=== PATIENT | male | born 1965 | race Caucasian/White ===

== ENCOUNTER 2016-05-08 17:53 | Inpatient (IN) ==
[2016-05-08] MEDS ORDERED: ONDANSETRON 4 MG/2 ML VIAL IV STA (18:40)
[2016-05-08] MEDS ORDERED: SODIUM CHLORIDE 0.9% 500 ML IV STA (18:40)
[2016-05-08] MEDS ORDERED: ONDANSETRON 4 MG/2 ML VIAL ONE ×2 (18:44→22:09)
--- NOTE | 2016-05-08 18:44 | Emergency Department Note ---
Arrival - Arrival Chief Complaint: Abdominal / Flank Pain Stated Complaint: stomach is aching in the lower region ED Nursing Triage Note: c/o having right lower abd.pain since thrusday., + temp with the highest being 102.0 apx. 1 hour ago,last tylenol apx. 1 hour ago., + diarrhea, + nausea Mode of Arrival: Ambulatory Limitations: No Limitations Source: Patient Time Seen by Provider: 05/08/16 18:30 - History of Present Illness HPI Narrative: This is a 50-year-old male patient presents the ED complaining of abdominal pain that began on . Patient also reports some fever that began today. Patient was initially generalized in the lower abdomen but has since localized in the right lower quadrant. He has had loss of appetite also. Patient's last bowel movement was yesterday. He also reports some dysuria today. Patient's pain is worse when he moves and walks. Past medical history is unremarkable. Allergies/Adverse Reactions: Allergies Allergy/AdvReac Type Severity Reaction Status Date / Time No Known Allergies Allergy Unverified 05/08/16 17:57 Review of System - Review of System 12 point system: reviewed and no additional remarkable complaints except as stated - Review of System Constitutional: Present: chills, fever Gastrointestinal: Present: abdominal pain, nausea Medical,Surgical,& Family Hx - Medical History Medical History: noncontributory - Social History Smoking Status: Never smoker Frequency of Alcohol Use: None Type of Drug Use: Unknown Exam Vital Signs: Vital Signs Temperature 99.5 F 05/08/16 17:55 Pulse Rate 109 H 05/08/16 17:55 Respiratory Rate 20 05/08/16 17:55 Blood Pressure 149/90 05/08/16 17:55 O2 Sat by Pulse Oximetry 96 05/08/16 17:55 - General General appearance: alert, in distress - Head Head exam: Present: atraumatic (secondary to abdominal pain) - Eye Eye exam: Present: normal appearance, PERRL, EOMI - Neck Neck exam: Present: normal inspection - Chest Chest inspection: Present: normal inspection - Respiratory Respiratory exam: Present: normal lung sounds bilaterally. Absent: respiratory distress, wheezes - Cardiovascular Cardiovascular exam: Present: normal rhythm, tachycardia. Absent: murmur, rubs , gallop - Abdominal Exam Abdominal exam: Present: soft, tenderness (right lower quadrant and lower epigastric area), guarding, rebound, diminished bowel sounds - Rectal Exam Rectal exam: Present: deferred - Extremities Exam Extremities exam: Present: normal inspection - Back Exam Back exam: Present: normal inspection - Neurological Exam Neurological exam: Present: alert, oriented X3 - Psychiatric Psychiatric exam: Present: normal affect, normal mood - Skin Skin exam: Present: warm, dry Course Course Narrative: Patient discussed with Dr. Barone who will take patient to surgery for an appendectomy. Results - Labs CBC & BMP: 05/08/16 18:48 Lab Results: I have reviewed the patients labs - Diagnostic Findings Procedure: CT: report reviewed by me (CT abdomen shows an acute appendicitis.) Disposition Clinical Impression: Acute appendicitis Case discussed with: patient Disposition: Still a Patient Condition: Guarded Additional Instructions: Admit to Dr. Barone for surgery
[2016-05-08 19:02] LABS: Basophils % 0.1 % (0.0-0.8); Hematocrit 41.7 VOL% (42.0-52.0); Hemoglobin 14.8 GM/DL (14.0-18.0); Immature Granulocytes % 0.6 %; Lymphocytes # 0.6 10*3/uL (1.4-4.0); Lymphocytes % 3.9 % (21.2-54.2); Mean Corpuscular HGB Conc 35.5 GM/DL (32-36); Mean Corpuscular Hemoglobin 31 PG (27-34); Mean Corpuscular Volume 86.2 FL (87-102); Mean Platelet Volume 9.3 FL (9.6-12.0); Monocytes # 1.4 10*3/uL (0.11-0.8); Monocytes % 8.6 % (1.7-12.7); Neutrophils # 13.9 10*3/uL (1.4-7.4); Neutrophils % 86.8 % (38.7-73.9); Platelet Count 209 10*3/uL (130-400); Red Blood Count 4.84 10*6/uL (3.8-5.5); Red Cell Distribution Width 12.1 % (9.3-17.3)
[2016-05-08 19:10] LABS: Apearance,Urine CLEAR (Clear); Bilirubin,Urine Negative (Negative); Blood, Urine Negative (Negative); Glucose,Urine (UA) >=500 mg/dL (Negative); Ketones,Urine Negative (Negative); Nitrite,Urine Negative (Negative); Protein,Urine Negative; Urine Color Yellow (Yellow); Urine Specific Gravity 1.005 (1.001-1.035); Urine Urobilinogen < 2.0 EU/DL (0.2-1.0); WBC,Urine 1 /HPF (0-6)
--- NOTE | 2016-05-08 19:17 | CT Report ---
CT abdomen pelvis w con Indication: Right lower quadrant abdominal pain. Fever. Comparison: None. Technique: CT of the abdomen and pelvis was performed following administration of intravenous contrast. Findings: Pulmonary nodule subpleural right lower lobe image #9 measures 4.5 mm. No definite calcification is identified within this nodule. Lower chest otherwise is unremarkable. The liver demonstrates no significant abnormality. A calcified gallstone is noted dependently within the gallbladder. The gallbladder wall appears normal. No inflammatory changes are present. Spleen is normal in size and appearance. The pancreas demonstrates no significant abnormality. The adrenal glands and kidneys demonstrate no significant abnormalities. The aorta and inferior vena cava demonstrate no significant abnormalities. The appendix is diffusely enlarged and demonstrates a moderate degree of periappendiceal fat stranding and inflammation. Transverse dimension the appendix is 16 mm. There is no distinct evidence of perforation. Inflammatory changes surrounding the appendix but the terminal ileum and may result in minimal thickening of the distal ileal wall. The large bowel demonstrates no acute findings. The intrapelvic contents demonstrate no acute findings. Bony structures of the lumbar spine, pelvis, proximal femurs demonstrate no significant abnormalities. Impression: 1. Findings compatible with acute appendicitis. 2. Cholelithiasis. Findings were communicated to Dr. Bell in fast track at 1913 hrs., date of exam. 05/08/2016 7:06 PM PROCEDURE INTERPRETED AT [facility] DEPARTMENT OF RADIOLOGY Final Report Signed by: Dr. Tacho Maldonado
[2016-05-08 19:21] LABS: Albumin 3.9 G/DL (3.4-5.0); Bilirubin,Total 1.8 MG/DL (0.2-1.0); Calcium 8.7 MG/DL (8.5-10.1); Total Protein 7.5 G/DL (6.4-8.3)
[2016-05-08] MEDS ORDERED: ceFAZolin 1,000 MG VIAL ONE (19:21)
[2016-05-08 19:54] LABS: Lymphocytes 3 % (20-55); Segmented Neutrophils 88 % (50-85); Total Cells Counted 100
[2016-05-08] MEDS ORDERED: ACETAMINOPHEN 500 MG TABLET ONE (19:54)
[2016-05-08] MEDS ORDERED: GABAPENTIN 400 MG CAPSULE ONE (19:55)
[2016-05-08] MEDS ORDERED: ACETAMINOPHEN 500 MG TABLET PO ONE (20:05)
--- NOTE | 2016-05-08 20:31 | General Surg History&Physical ---
Assessment and Plan (1) Acute appendicitis Status: Acute Assessment and plan: This patient has acute appendicitis. I have discussed the treatment for appendicitis with the patient. I have discussed both medical and surgical management. I discussed the success rate of antibiotics for the treatment of appendicitis. I discussed the benefits and drawbacks of both options and my recommendation has been for operative intervention. I recommended a laparoscopic appendectomy to the patient. I discussed the risks, benefits, and alternatives of the operation, and the expected outcomes have been reviewed. The patient would like to proceed with laparoscopic cholecystectomy. Current Visit: Yes History of Present Illness Chief complaint: abdominal pain History of present illness: Mr. Alfred is a 50 year old male with no significant past medical or surgical history who presents to the hospital with a 2 day history of worsening abdominal pain. He has never had pain like this before. He has some nausea but no vomiting. No changes in his bowel movements. He had a recent colonoscopy last year that had some polyps that were benign. He has had some low-grade fevers. The pain started in his midabdomen and moved to the right lower quadrant today. Workup in the ER included white blood cell count of 16,000 and normal urinalysis. The patient's bilirubin was elevated at 1.8. CT scan showed acute appendicitis. Allergies Allergy/AdvReac Type Severity Reaction Status Date / Time No Known Allergies Allergy Unverified 05/08/16 17:57 Medical,Surgical,& Family Hx - Social History Smoking Status: Never smoker Frequency of Alcohol Use: None Type of Drug Use: Unknown Exam - Constitutional Vitals: Period Temp Pulse Resp BP Sys/Weeks Pulse Ox Last 24 Hr 99.5 F 109 20 149/90 96 General appearance: no acute distress, over weight - Head Head exam: Present: normal inspection, normocephalic - Eye Eye exam: Present: EOMI Pupils: Present: DANIEL - ENT ENT exam: Present: normal exam Mouth exam: Present: normal external inspection, normal voice - Neck Neck exam: Present: normal inspection, trachea midline - Respiratory Respiratory exam: Present: clear to auscultation bilaterally. Absent: accessory muscle use, chest wall tenderness - Cardiovascular Cardiovascular exam: Present: RRR. Absent: systolic murmur, tachycardia - GI/Abdominal GI/Abdominal exam: Present: tenderness (right lower quadrant tenderness at McBurney's point. Positive Rovsing sign), soft - Extremities Exam Extremities exam: Present: normal inspection, normal capillary refill - Back Exam Back exam: Present: normal inspection - Neurological Exam Neurological exam: Present: alert, oriented X3 Speech: Present: normal - Skin Skin exam: Present: normal color, warm - Constitutional Constitutional: Present: as per HPI - EENT Nose, mouth and throat: Present: as per HPI - Cardiovascular Cardiovascular: Present: as per HPI - Respiratory Respiratory: Present: as per HPI - Gastrointestinal Gastrointestinal: Present: as per HPI - Genitourinary Genitourinary: Present: as per HPI - Musculoskeletal Musculoskeletal: Present: as per HPI - Neurological Neurological: Present: as per HPI - Endocrine Endocrine: Present: as per HPI Hematologic/Lymphatic: Present: as per HPI Results - Labs CBC & BMP: 05/08/16 18:48 05/08/16 18:48 - Diagnostic Findings Procedure: CT Abdomen and Pelvis: image reviewed by me, report reviewed by me
[2016-05-08] MEDS ORDERED: TISSUE ADHESIVE 1 EACH APPLICATOR TOP ONE (20:40)
[2016-05-08] MEDS ORDERED: LIDOCAINE 1%/EPI INJ 20 ML VIAL ONE (20:40)
[2016-05-08] MEDS ORDERED: BUPIVACAINE MPF 0.25% /EPI 30 ML VIAL ONE (20:40)
--- NOTE | 2016-05-08 22:02 | Operative Note ---
Date of procedure: 05/08/16 Pre-op diagnosis: acute appendicitis Post-op diagnosis: other (acute perforated appendicitis) Procedure: Preoperative diagnosis Acute appendicitis Postoperative diagnosis Acute perforated appendicitis Procedures performed Laparoscopic appendectomy 22 modifier Findings Acute appendicitis is present in the right lower quadrant and the appendix was very stuck and fibrotic to the retroperitoneum into the cecal wall as well as the terminal ileum. The fibrotic nature of some of inflammation made this surgery take more than twice the usual length of time. The appendix was perforated and there was a smaller purulent fluid in the right lower quadrant. Complications None apparent Specimen Appendix Blood loss 25 mL Anesthesia GETA Indications Acute appendicitis CT proven Description of procedure The patient was taken to the operating room and transferred to the operating table in the supine position. Pressure points were padded and SCDs were placed bilateral lower extremities. General endotracheal anesthesia was administered. The abdomen was prepped chlorhexidine and draped sterilely. Preoperative antibiotics were administered, and a timeout was performed. The abdomen was entered in a supraumbilical location in the right paramedian location with a Veress needle. Local anesthetic was administered and a 12 mm skin incision was made with an 11 blade scalpel. Penetrating towel clips were used to grasp the abdominal wall skin and a Veress needle was used to enter the peritoneal cavity. Double click technique was used to enter the peritoneal location. Aspiration was negative. Saline drop test confirmed intraperitoneal location. The abdomen was insufflated to 15 mmHg with initial insufflation pressure of 5 mmHg. The Veress needle was removed and a 12 mm trocar was placed blindly. Laparoscope was inserted and a diagnostic laparoscopy was performed. The gallbladder appeared normal. There were some adhesions between the ascending colon and the anterior abdominal wall but no complications from this. The appendix was inflamed in the right lower quadrant. There is a area of purulent fluid next to the appendix. The terminal ileum was stuck down to the appendix and there was a fibrotic nature to the reaction suggesting chronic inflammation. Under direct visualization, and after local anesthetics administered, a suprapubic 5 mm trocar and a left lower quadrant 5 mm trocar were placed. The patient was placed in Trendelenburg and left side rolled up position. It is very difficult to dissect the appendix away from the terminal ileum, the cecum, and the retroperitoneum because of some of the fibrotic nature of the reaction of inflammation. This made the case take more than twice the usual length of time. Eventually I was able to completely mobilize the appendix away from the structures and a window in the appendiceal mesentery was created with a [place] dissector. The base of the appendix was ligated using a ALEE stapler. The appendiceal mesentery was then divided with vascular staple loads with the ALEE stapler. There was some bleeding from the staple line controlled with direct pressure and Surgicel was applied to the raw surface for the appendix to been dissected away from the retroperitoneum. The CO2 level was decreased to 6 mmHg and there was no bleeding seen. Local suction irrigation was performed in the right lower quadrant. The CO2 was released from the abdomen after the appendix was placed in a retrieval bag and removed through the supraumbilical trocar. The trochars were removed once the CO2 was released and the skin incisions were closed with 4-0 Monocryl and sterile skin glue. The patient was awakened from anesthesia and transferred to recovery. Postoperative plan Continue antibiotics Diet as tolerated Discharge planning Implants: surgicel Anesthesia: MARIA LUISA local Surgeon / Physician: Ivan Barone Estimated blood loss: other (25 mL) Specimens: other (appendix) Condition: stable Disposition: PACU Results - Labs CBC & BMP: 05/08/16 18:48 05/08/16 18:48
[2016-05-08] MEDS ORDERED: PROPOFOL 200 MG/20 ML VIAL IV ONE (22:08)
[2016-05-08] MEDS ORDERED: NEOSTIGMINE 10 MG/10 ML VIAL ONE (22:09)
[2016-05-08] MEDS ORDERED: ROCURONIUM 100 MG/10 ML VIAL IV ONE (22:09)
[2016-05-08] MEDS ORDERED: KETOROLAC 30 MG/1 ML VIAL ONE (22:09)
[2016-05-08] MEDS ORDERED: GLYCOPYRROLATE 0.4 MG/2 ML VIAL ONE (22:09)
[2016-05-08] MEDS ORDERED: MIDAZOLAM 2 MG/2 ML VIAL ONE (22:09)
[2016-05-08] MEDS ORDERED: LACTATED RINGERS 1,000 ML IV ONE (22:10)
--- NOTE | 2016-05-08 22:26 | Anesthesia ---
Anesthesia Post OP - Post Ansesthetic Evaluation Patient seen in post op: Yes Resp: within normal limits CV: within normal limits Mental: within normal limits Temp: within normal limits [id number]-Dtopaumis: within normal limits Nausea and Vomiting: within normal limits Pain: within normal limits
[2016-05-08] MEDS ORDERED: HYDROmorphone 2 MG/1 ML VIAL IV PRN (22:58)
[2016-05-08] MEDS ORDERED: PROMETHAZINE 25 MG/1 ML VIAL IM PRN (22:58)
[2016-05-08] MEDS: KETOROLAC 15 MG/1 ML VIAL IV SCH (23:30)
[2016-05-08] MEDS: LACTATED RINGERS 1,000 ML IV SCH (23:30)
[2016-05-08] MEDS: PIPERACILLIN/TAZOBACTAM 3,375 MG in SODIUM CHLORIDE 0.9% 100 ML IV SCH (23:30)
[2016-05-09] MEDS: KETOROLAC 15 MG/1 ML VIAL IV SCH ×5 (00:10→22:26)
[2016-05-09] MEDS: PANTOPRAZOLE 40 MG TABLET PO SCH (08:03)
[2016-05-09] MEDS: PIPERACILLIN/TAZOBACTAM 3,375 MG in SODIUM CHLORIDE 0.9% 100 ML IV SCH ×3 (08:03→22:22)
--- NOTE | 2016-05-09 10:53 | EKG Report ---
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
[2016-05-09] MEDS: LACTATED RINGERS 1,000 ML IV SCH ×2 (10:55→22:22)
--- NOTE | 2016-05-09 13:30 | Event Note ---
General Surgery Progress Note Chief complaint This patient is a 50-year-old man admitted with acute appendicitis treated with laparoscopic appendectomy on 05/08/2016 and found to have a perforated appendicitis Interval history The patient was doing well he did spike a fever today. He's not having much abdominal pain at all. His urine is slightly concentrated. He is tolerating his diet and drinking plenty of liquids. He is passing gas but no bowel movements yet. Physical exam Febrile to 102.1 with little bit of tachycardia this morning but normal blood pressure Chest is clear Heart is regular no sign abdomen is soft and nondistended. It is appropriately tender. Good bowel sounds. Assessment and plan The fever is not unexpected given the fact that his appendix was perforated. We will continue to monitor his fever curve he otherwise appears to be doing well. Continue antibiotics and regular diet today.
[2016-05-09] MEDS ORDERED: ENOXAPARIN 40 MG/0.4 ML SYRINGE ONE (14:07)
[2016-05-09] MEDS: ENOXAPARIN 40 MG/0.4 ML SYRINGE SUBCUT SCH (16:02)
[2016-05-09] MEDS ORDERED: GABAPENTIN 400 MG CAPSULE PO ONE (20:05)
[2016-05-10 02:48] LABS: Basophils % 0.2 % (0.0-0.8); Eosinophils % 0.5 % (0.00-10.9); Hemoglobin 12.2 GM/DL (14.0-18.0); Immature Granulocytes % 0.7 %; Immature Granulocytes Absolute 0.06 #; Lymphocytes # 1.1 10*3/uL (1.4-4.0); Lymphocytes % 13.1 % (21.2-54.2); Mean Corpuscular HGB Conc 33.9 GM/DL (32-36); Mean Corpuscular Hemoglobin 30 PG (27-34); Mean Platelet Volume 9.3 FL (9.6-12.0); Monocytes # 0.9 10*3/uL (0.11-0.8); Monocytes % 10.3 % (1.7-12.7); Neutrophils # 6.5 10*3/uL (1.4-7.4); Neutrophils % 75.2 % (38.7-73.9); Platelet Count 158 10*3/uL (130-400); Red Blood Count 4.09 10*6/uL (3.8-5.5); Red Cell Distribution Width 12.5 % (9.3-17.3); White Blood Count 8.7 10*3/uL (4.5-13.71)
[2016-05-10 03:08] LABS: Albumin 3.1 G/DL (3.4-5.0); Bilirubin,Total 1.6 MG/DL (0.2-1.0); Calcium 7.8 MG/DL (8.5-10.1); Total Protein 5.8 G/DL (6.4-8.3)
[2016-05-10 03:09] LABS: Osmolality,Calculated 271.2 MOS/KG (273-304); Potassium 3.7 MMOL/L (3.5-5.1)
[2016-05-10] MEDS ORDERED: SODIUM CHLORIDE 0.9% 1,000 ML IV ONE (03:40)
[2016-05-10] MEDS: KETOROLAC 15 MG/1 ML VIAL IV SCH ×2 (05:08→10:12)
[2016-05-10] MEDS: LACTATED RINGERS 1,000 ML IV SCH (05:08)
[2016-05-10] MEDS: PANTOPRAZOLE 40 MG TABLET PO SCH ×2 (07:36→08:00)
[2016-05-10] MEDS: ONDANSETRON 4 MG/2 ML VIAL IV PRN ×2 (08:37→18:25)
--- NOTE | 2016-05-10 09:33 | XRay Report ---
XR KUB Indication: Abdominal distention Comparison: None. Technique: Supine AP image of the abdomen was obtained. Findings: Lung bases are clear. There is no evidence of organomegaly. Bowel gas pattern is unremarkable. Renal contours are bilaterally symmetric. Bones and soft tissues demonstrate no significant abnormalities. Impression: 1. No active process is demonstrated within the abdomen or pelvis. 05/10/2016 9:30 AM PROCEDURE INTERPRETED AT [facility] DEPARTMENT OF RADIOLOGY Final Report Signed by: Dr. Tacho Maldonado
--- NOTE | 2016-05-10 10:03 | EKG Report ---
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
--- NOTE | 2016-05-10 11:43 | Event Note ---
General Surgery Progress Note Chief complaint This patient is a 50-year-old man admitted with acute appendicitis treated with laparoscopic appendectomy on 05/08/2016 and found to have a perforated appendicitis Interval history The patient had an episode after Zosyn infusion morning developed tachycardia and the 200s. It was short-lived. He had some dyspnea on occurred. He is back to his baseline today but he is having some abdominal distention throughout after breakfast. He is passing gas but hasn't had a bowel movement yet. He had a fever again last night but he defervesced this morning. Physical exam Fever overnight but normal this morning Chest is clear Heart is regular no sign abdomen is soft. The abdomen is more distended than yesterday. It is appropriately tender. Decreased bowel sounds. Assessment and plan Nothing the episode the patient had last night is consistent with an antibiotic allergy. We will list Zosyn as an allergy and change him to ciprofloxacin and Flagyl IV. He also appears to have a slight ileus but he does not have a concerning abdominal exam. We will continue his antibiotics given his fevers and switch him from Zosyn to Cipro and Flagyl. Continue diet as tolerated but continue IV fluids for early ileus. encourage ambulation
[2016-05-10] MEDS: DEXT 5% NACL 0.45% KCL 20 MEQ 20 MEQ/1,000 ML BAG IV SCH ×2 (11:49→15:02)
[2016-05-10] MEDS ORDERED: CIPROFLOXACIN INJ 400 MG in PREMIX 1 EACH IV SCH (12:30)
[2016-05-10] MEDS ORDERED: metroNIDAZOLE INJ 500 MG in PREMIX 1 EACH IV SCH (12:30)
--- NOTE | 2016-05-10 12:31 | EKG Report ---
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
[2016-05-10] MEDS ORDERED: LACTATED RINGERS 1,000 ML IV ONE (13:15)
--- NOTE | 2016-05-10 13:38 | XRay Report ---
XR chest 1V portable Indication: Chest pain. Comparison: None. Technique: Portable AP chest was performed. Findings: Heart size, mediastinal contour, and hilar structures demonstrate no evidence of acute pathology. Minimal elevation right hemidiaphragm is present. Stranding opacities in the right infrahilar lung are nonspecific and likely influenced by the degree of inspiration. Infectious process is not excluded.. Bones and soft tissues demonstrate no evidence of acute pathology. Impression: 1. Infectious process right infrahilar lung is not excluded. 05/10/2016 1:35 PM PROCEDURE INTERPRETED AT [facility] DEPARTMENT OF RADIOLOGY Final Report Signed by: Dr. Tacho Maldonado
--- NOTE | 2016-05-10 14:21 | CT Report ---
CT abdomen pelvis w con, CT chest PE study Indication: Status post appendectomy. Episode of fever and desaturation. Comparison: None. Technique: CT of the chest, abdomen and pelvis was performed following administration of intravenous contrast. Findings: CHEST: Within the medial segment of the right middle lobe, there is airspace attenuation with surrounding groundglass attenuation as well as superimposed thickened intralobular septal lines. This focus of airspace attenuation suggests infectious process/pneumonia. Dependent atelectasis is noted bilaterally within the lower chest. Additionally present within the lower chest, smoothly thickened interlobular septal lines are present which are nonspecific and could reflect presence of interstitial edema or infection. Compressive atelectasis is minimal within the posterior right lower lobe. No pleural effusions are demonstrated. The pulmonary artery demonstrate suboptimal opacification, averaging 129 Hounsfield units. No central filling defects are present within the pulmonary artery. Lobar pulmonary arteries are grossly normal. Segmental and subsegmental pulmonary arteries cannot be visualized. Heart size is normal. A small to moderate amount fluid is present within the esophagus. Subcentimeter mediastinal and hilar lymph nodes are demonstrated. Soft tissues and musculature the chest wall, as well as bony structures of the chest demonstrate no acute findings. ABDOMEN/PELVIS: Appearance of the liver, gallbladder, spleen, pancreas, adrenal glands, and kidneys is stable compared to the previous study with exception of increased perinephric fat stranding surrounding the right kidney. Small gallstone dependently located within the gallbladder is stable. A moderate amount of fat stranding is now present within the right lower quadrant where previously the inflamed appendix was. There's been interval appendectomy. A small rounded focus of attenuation compatible with Surgicel is present. The fat stranding surrounds the right ureter. Small large bowel demonstrate no significant abnormalities otherwise are stable compared to previous study. Bony structures of the lower lumbar spine, pelvis, proximal femurs as well as intrapelvic contents demonstrate no significant interval change. Impression: 1. Pneumonia involving medial segment right middle lobe is suggested. 2. Thickened interstitial lines within the lower lobes are nonspecific and may reflect evidence of pulmonary edema or infection. 3. Interval appendectomy. Rounded focus of attenuation smooth margins may reflect Surgicel. Otherwise, there's been slight interval increase in mesenteric inflammatory stranding which is nonspecific given the recent stent surgery. 4. Minimal perinephric fat stranding increase has occurred surrounding the right kidney. Correlation with urinalysis and culture may be useful to exclude pyelonephritis. 5. No evidence of pulmonary artery embolus, note is made however that there is significant limitation in evaluating the segmental and subsegmental branches secondary to contrast timing. 6. Cholelithiasis. 7. Otherwise little change in the appearance of the chest, abdomen, or pelvis. 05/10/2016 2:01 PM PROCEDURE INTERPRETED AT [facility] DEPARTMENT OF RADIOLOGY Final Report Signed by: Dr. Tacho Maldonado
[2016-05-10] MEDS ORDERED: ACETAMINOPHEN 325 MG TABLET ONE (14:37)
[2016-05-10 15:23] LABS: Apearance,Urine CLEAR (Clear); Bilirubin,Urine Negative (Negative); Blood, Urine Negative (Negative); Glucose,Urine (UA) Negative (Negative); Ketones,Urine Negative (Negative); Nitrite,Urine Negative (Negative); Protein,Urine Negative; RBC,Urine <1 /HPF (0-4); Urine Color Yellow (Yellow); Urine Specific Gravity 1.009 (1.001-1.035); WBC,Urine 1 /HPF (0-6)
[2016-05-10] MEDS ORDERED: KETOROLAC 30 MG/1 ML VIAL IV PRN (15:36)
[2016-05-10] MEDS: ENOXAPARIN 40 MG/0.4 ML SYRINGE SUBCUT SCH (15:47)
--- NOTE | 2016-05-10 16:13 | Ultrasound Report ---
US venous doppler LE BI Indication: Shortness of breath Comparison: None. Technique: Using a transcutaneous probe, grayscale, spectral Doppler, and color Doppler images of the bilateral lower extremity venous structures were captured and stored. Grayscale images prior to and following compression were obtained. Interrogated venous structures include the bilateral common femoral vein, superficial femoral vein (proximal, mid, and distal), and popliteal vein. Findings: There is no evidence of thrombus within the interrogated venous structures. the interrogated venous segments demonstrate presence of both color flow and spectral flow. Impression: 1. No evidence of venous thrombosis. 05/10/2016 4:10 PM PROCEDURE INTERPRETED AT [facility] DEPARTMENT OF RADIOLOGY Final Report Signed by: Dr. Tacho Maldonado
--- NOTE | 2016-05-10 18:26 | Nuclear Medicine Report ---
NM lung scan vent and per Indication: Incomplete exclusion of pulmonary embolus on recent CT angiography of the pulmonary artery. Shortness of breath and fever. Comparison: None. Technique: Ventilation scan of the lungs was performed. 30 mCi of technetium 99m labeled DTPA was administered in aerosolized form, following which planar imaging in the anterior, [place], and COLIN projections was accomplished. Following this, 5 mCi technetium 99m labeled MAA was injected intravenously and perfusion scanning of the chest was performed in the anterior, [place], and COLIN projections. Findings: Perfusion imaging demonstrates no defects, essentially excluding pulmonary artery emboli. The ventilation component of the study suggests some evidence of clumping of DTPA within the central airways. Impression: 1. Normal study. No perfusion defect. 05/10/2016 6:22 PM PROCEDURE INTERPRETED AT [facility] DEPARTMENT OF RADIOLOGY Final Report Signed by: Dr. Tacho Maldonado
[2016-05-10] MEDS: ACETAMINOPHEN 325 MG TABLET PO PRN (18:43)
[2016-05-11] MEDS: DEXT 5% NACL 0.45% KCL 20 MEQ 20 MEQ/1,000 ML BAG IV SCH ×3 (00:50→21:04)
[2016-05-11] MEDS: ACETAMINOPHEN 325 MG TABLET PO PRN ×5 (02:21→21:08)
[2016-05-11 04:11] LABS: Basophils % 0.1 % (0.0-0.8); Eosinophils % 0.3 % (0.00-10.9); Hematocrit 34.8 VOL% (42.0-52.0); Hemoglobin 11.6 GM/DL (14.0-18.0); Immature Granulocytes % 0.6 %; Immature Granulocytes Absolute 0.05 #; Lymphocytes # 0.6 10*3/uL (1.4-4.0); Mean Corpuscular HGB Conc 33.3 GM/DL (32-36); Mean Corpuscular Hemoglobin 30 PG (27-34); Mean Corpuscular Volume 88.8 FL (87-102); Mean Platelet Volume 9.5 FL (9.6-12.0); Monocytes % 12.4 % (1.7-12.7); Neutrophils # 6.2 10*3/uL (1.4-7.4); Neutrophils % 78.6 % (38.7-73.9); Platelet Count 181 10*3/uL (130-400); Red Blood Count 3.92 10*6/uL (3.8-5.5); Red Cell Distribution Width 12.4 % (9.3-17.3); White Blood Count 7.9 10*3/uL (4.5-13.71)
[2016-05-11 04:32] LABS: Lactic Acid 1.8 MMOL/L (0.4-2.0)
[2016-05-11 04:48] LABS: Bilirubin,Total 1.1 MG/DL (0.2-1.0); Calcium 8.1 MG/DL (8.5-10.1); Osmolality,Calculated 281.4 MOS/KG (273-304); Potassium 4.1 MMOL/L (3.5-5.1); Total Protein 5.9 G/DL (6.4-8.3)
[2016-05-11] MEDS: AMOXICILLIN/CLAV 875 MG TABLET PO SCH ×2 (06:02→17:51)
--- NOTE | 2016-05-11 07:27 | Event Note ---
General Surgery Progress Note Chief complaint This patient is a 50-year-old man admitted with acute appendicitis treated with laparoscopic appendectomy on 05/08/2016 and found to have a perforated appendicitis Interval history The patient was moved to the ICU yesterday for spiking fever with tachycardia and desaturation. His workup included CT of the chest PE protocol and CT abdomen and pelvis. The CT PE protocol chest was limited due to poor timing of contrast but no obvious PE was seen. His abdomen and pelvis CT showed postoperative changes with no abscess or leakage. No free air. The ultrasound of the legs showed no DVT and a VQ scan was negative for any pulmonary emboli. He spiked another fever last night 102.8 but he is back down to normal this morning. He feels well and is tolerating his diet. Physical exam Fever overnight but normal this morning Chest is clear Heart is regular no sign abdomen is soft. The abdomen is more distended than yesterday. It is appropriately tender. Normal bowel sounds. Assessment and plan We will start the patient on by mouth Augmentin twice daily Fever may be related bacteremia. Blood cultures were drawn this morning when he spiked a fever and will follow-up these. Continue ICU care, may transfer out to floor later today if doing well.
[2016-05-11] MEDS: PANTOPRAZOLE 40 MG TABLET PO SCH (08:16)
--- NOTE | 2016-05-11 10:23 | Pathology Report from [facility] ---
ACCESSION # : [id number] PATIENT NAME : Oskar Alfred ORDERING DR : Ivan Barone MD CLINICAL HX: Acute appendix POST-OP DX: Same SPECIMEN INFO: Appendix GROSS DESCRIPTION: The specimen is received in formalin labeled with the patient 's name "CHAY ALFRED" and consists of an approximately 12.5 cm x up to 2.9 cm angela-piedra appendix with a perforation and adhesions present. The lumen is focally dilated at the site of perforation measuring up to 1.0 cm. Hemorrhagic material is present. No fecaliths identified. Dough [place] sections submitted in one cassette. DIAGNOSIS FOR OSKAR ALFRED: APPENDIX: Ruptured acute appendicitis with peritonitis. SERVICE DATE: 05/09/2016 REPORT DATE: 05/11/2016 PATHOLOGIST: Sheri Gomez III, M.D. MTDD
[2016-05-11] MEDS: MULTIVITAMIN (BEROCCA) TABLET PO SCH (15:16)
[2016-05-11] MEDS: ENOXAPARIN 40 MG/0.4 ML SYRINGE SUBCUT SCH (15:16)
[2016-05-11] MEDS: OMEGA 3 ACID ETHYL ESTERS 1 GM CAPSULE PO SCH (15:16)
[2016-05-11] MEDS: MULTIVITAMIN (CENTRUM) TABLET PO SCH (15:16)
[2016-05-12] MEDS: DEXT 5% NACL 0.45% KCL 20 MEQ 20 MEQ/1,000 ML BAG IV SCH (04:42)
[2016-05-12] MEDS: AMOXICILLIN/CLAV 875 MG TABLET PO SCH (05:26)
[2016-05-12] MEDS ORDERED: IBUPROFEN 600 MG TABLET PO PRN (07:33)
[2016-05-12] MEDS: OMEGA 3 ACID ETHYL ESTERS 1 GM CAPSULE PO SCH (08:23)
[2016-05-12] MEDS: MULTIVITAMIN (BEROCCA) TABLET PO SCH (08:23)
[2016-05-12] MEDS: MULTIVITAMIN (CENTRUM) TABLET PO SCH (08:24)
[2016-05-12] MEDS: PANTOPRAZOLE 40 MG TABLET PO SCH (08:24)
--- NOTE | 2016-05-12 10:34 | Discharge Summary ---
Hospital Course - Hospital Course Hospital Course: This patient was admitted after laparoscopic appendectomy for acute perforated appendicitis. He had some issues postoperatively spiking fevers and developing severe tachycardia and shortness of breath. He was moved to the ICU and this was worked up with a CT of the chest PE protocol, CT of abdomen and pelvis, and lower extremities as well as VQ scan. All these were negative. It was thought in the in that the patient probably had some bacteremia and was releasing endotoxin with his antibiotics when they were administered. This eventually went away and the patient was doing very well tolerating his diet with oral antibiotics and his pain is well-controlled. He was discharged home with follow -up with me in 2 weeks and a 10 day course of Augmentin. Diagnosis - Discharge Diagnosis (1) Acute appendicitis Status: Acute Specialty Discharge - Follow Up or Referrals - Discharge Medications No Action Vitamin B Complex/Folic Acid [Vitamin B-100 Complex Tablet] 0.4 mg PO DAILY [place]-3/Dha/Epa/Fish Oil [Fish Oil EC 1,200 mg Softgel] 1,200 mg PO DAILY Mv, Min #36/Iron,Carbonyl/FA [Geritol Complete Tablet] 1 each PO DAILY Discharge Plan - Discharge Data Disposition: Disch To Home/Self Care Condition at Discharge: Stable Discharge Diet: advance to your usual diet Activity: no lifting Hygiene: may shower Weight Bearing at Discharge: full weight bearing, weight bear as tolerated Driving: no restrictions Contact your physician if you experience:: fever over 101, Difficulty voiding, Redness or swelling, Nausea/Vomiting, Shortness of breath, Bleeding, pain uncontrolled by pain medications - Discharge Medications New Amoxicillin/Clav Tab [Augmentin Tab] 875 mg PO Q12H #20 tablet HYDROcodone/ACETAMIN 7.5-325 [[place] 7.5-325] 1 tablet PO Q4H PRN #30 tablet PRN Reason: Pain Moderate (4-7) Continue Vitamin B Complex/Folic Acid [Vitamin B-100 Complex Tablet] 0.4 mg PO DAILY [place]-3/Dha/Epa/Fish Oil [Fish Oil EC 1,200 mg Softgel] 1,200 mg PO DAILY Mv, Min #36/Iron,Carbonyl/FA [Geritol Complete Tablet] 1 each PO DAILY - Follow Up or Referral Follow Up: Ivan Barone MD [Physician] - 2 Weeks - Forms/Instructions Exam - Constitutional Vitals: Period Temp Pulse Resp BP Sys/Weeks Pulse Ox Last 24 Hr 98.4 F-99.2 F 82-95 13-24 130-149/78-95 92-96 General appearance: no acute distress, over weight - Head Head exam: Present: normal inspection, normocephalic - Eye Eye exam: Present: EOMI Pupils: Present: DANIEL - ENT ENT exam: Present: normal exam - Neck Neck exam: Present: normal inspection - Respiratory Respiratory exam: Present: clear to auscultation bilaterally. Absent: accessory muscle use, chest wall tenderness - Cardiovascular Cardiovascular exam: Present: regular rate and rhythm. Absent: systolic murmur , tachycardia - GI/Abdominal GI/Abdominal exam: Present: soft, other (incisions are healing well with no erythema.). Absent: tenderness, rebound - Extremities Exam Extremities exam: Present: normal inspection, normal capillary refill - Back Exam Back exam: Present: normal inspection - Neurological Exam Neurological exam: Present: alert, oriented X3 - Psychiatric Psychiatric exam: Present: normal affect, normal mood - Skin Skin exam: Present: normal color, warm DS: Provider Date of admission: 05/11/16 11:43 Attending physician on admission: Ivan Barone MD Discharging clinician: Ivan Barone MD Expected date of discharge: 05/12/16
[2016-05-12 11:35] VITALS: BP 157/87
== END 2016-05-12 11:38 | disposition home or self-care (01) | DRG 336 ==
LOC: N.ED 17:53 → N.5E 19:49 → N.SDSINP 19:49 → N.5E 20:51 → UNDODEPER 20:51 → N.5E 21:55 → N.ICU 05-10 13:56 → N.5E 05-11 13:47 → UNDODISIN 05-12 11:38
PROVIDERS: ADMIT Surgery; ATTEND Surgery